=== PATIENT | male | born 1930 | race Caucasian/White ===

== ENCOUNTER → 2017-12-17 | Outpatient (CLI) | payer MEDICARE, OTHER | END | disposition home or self-care (01) | LOC: PCVCIMAG 08:20 | DX: I73.9 Peripheral vascular disease, unspecified (principal); I25.10 Atherosclerotic heart disease of native coronary artery without angina pectoris; I10 Essential (primary) hypertension; E78.00 Pure hypercholesterolemia, unspecified; Z87.891 Personal history of nicotine dependence; Z79.82 Long term (current) use of aspirin; Z79.899 Other long term (current) drug therapy | CPT/HCPCS: 93925; G0463 ==

== ENCOUNTER → 2017-12-18 | Outpatient (CLI) | payer MEDICARE ==
[~2017-12-18] MED LIST: ASPIRIN 325 MG TABLET; CLOPIDOGREL BISULFATE 75 MG TABLET; DIAZEPAM 10 MG TABLET.; EPINEPHrine 1 MG/ML VIAL; EPTIFIBATIDE BOLUS 2,000 MCG/ML 10ML VIAL. IV; HEPARIN SODIUM 5,000 UNIT/ML VIAL for PCVC.; IODIXANOL 270 MG/ML 100 ML VIAL.; IV NORMAL SALINE 500ML BAG 500 ML; LIDOCAINE 1% Multi-Dose 50 ML VIAL.; MIDAZOLAM HCL/PF 2 MG/2 ML VIAL.; ceFAZolin SODIUM 1 GM VIAL; fentaNYL PF VIAL 100 MCG/2 ML VIAL; hydrALAZINE 20 MG/ML VIAL.
== END | disposition home or self-care (01) ==
LOC: PCVCIMAG 07:42
DX: I70.223 Atherosclerosis of native arteries of extremities with rest pain, bilateral legs (principal); I70.92 Chronic total occlusion of artery of the extremities; I70.0 Atherosclerosis of aorta; I70.1 Atherosclerosis of renal artery; I10 Essential (primary) hypertension; I25.10 Atherosclerotic heart disease of native coronary artery without angina pectoris
CPT/HCPCS: 36252; 37186; 37225; 37228; 37229; 37232; 75716; 76937; 99152; 99153; C1725; C1751; C1757; C1760; C1769; C1885; C1887; C1894; C2623; J0171; J0360; J0690; J1327; J1644; J2250; J3010; J7040

== ENCOUNTER → 2018-04-04 | Outpatient (CLI) | payer MEDICARE ==
--- NOTE | 2018-04-04 20:59 | PCVCIMAG ---
EXAM: BILATERAL CAROTID DUPLEX INDICATION: Carotid Occlusive Disease. FINDINGS: Doppler Measurements (centimeters per second): RIGHT: Peak CCA-121, Peak ECA-137, Diastolic ICA-14, Peak ICA-99, ICA/CCA Ratio-0.8. LEFT: Peak CCA-108, Peak ECA-160, Diastolic ICA-44, Peak ICA-228, ICA/CCA Ratio-2.1. RIGHT CAROTID: The carotid bulb has moderate plaque. The proximal internal carotid artery shows <40% stenosis. The common carotid artery shows no significant stenosis. The external carotid artery shows 40% stenosis. LEFT CAROTID: The carotid bulb has moderately severe plaque. The proximal internal carotid artery shows 60-70% stenosis. The common carotid artery shows no significant stenosis. The external carotid artery shows 50% stenosis. Antegrade flow in both vertebral arteries. IMPRESSION: <40% stenosis of the right internal carotid artery with moderate plaque. 60-70% stenosis of the left internal carotid artery with moderately severe plaque. LOC:[place] [id number]
--- NOTE | 2018-04-04 21:53 | PCVCIMAG ---
EXAM: LEFT LOWER EXTREMITY ARTERIAL DUPLEX INDICATION: Peripheral Arterial Disease. Leg pain. FINDINGS: Left Leg: Common femoral and profunda femoral arteries. Superficial femoral and popliteal artery are patent throughout. The anterior tibial and posterior tibial arteries are patent. 80% stenosis origin peroneal artery. IMPRESSION: Previous site of intervention left popliteal artery maintaining good patency. Left anterior and posterior tibial arteries are patent. 80% restenosis proximal left peroneal artery. LOC:[id number]
== END | disposition home or self-care (01) ==
LOC: PCVCIMAG 15:33
PROVIDERS: ATTEND Nuclear Medicine Nuclear Cardiology
DX: I65.23 Occlusion and stenosis of bilateral carotid arteries (principal); I73.9 Peripheral vascular disease, unspecified
CPT/HCPCS: 93880; 93926; G0463

== ENCOUNTER → 2018-04-07 | Outpatient (CLI) | payer MEDICARE | END | disposition home or self-care (01) | LOC: PCVCCLINIC 16:19 | PROVIDERS: ATTEND Nuclear Medicine Nuclear Cardiology | DX: I73.9 Peripheral vascular disease, unspecified (principal); I77.9 Disorder of arteries and arterioles, unspecified; I25.10 Atherosclerotic heart disease of native coronary artery without angina pectoris; I10 Essential (primary) hypertension; E78.00 Pure hypercholesterolemia, unspecified; Z87.891 Personal history of nicotine dependence; Z79.82 Long term (current) use of aspirin; Z88.8 Allergy status to other drugs, medicaments and biological substances | CPT/HCPCS: G0463 ==

== ENCOUNTER → 2018-10-13 | Outpatient (CLI) | payer BC, MEDICARE ==
--- NOTE | 2018-10-13 15:56 | PCVCIMAG ---
EXAM: BILATERAL CAROTID DUPLEX INDICATION: Carotid Occlusive Disease. FINDINGS: Doppler Measurements (centimeters per second): RIGHT: Peak CCA-116, Peak ECA-130, Diastolic ICA-27, Peak ICA-130, ICA/CCA Ratio-1.1. LEFT: Peak CCA-101, Peak ECA-114, Diastolic ICA-51 Peak ICA-239ICA/CCA Ratio-2.4 RIGHT CAROTID: The carotid bulb has moderate plaque. The proximal internal carotid artery shows 40-50% stenosis. The common carotid artery shows no significant stenosis. The external carotid artery shows 40% stenosis. LEFT CAROTID: The carotid bulb has moderately severe plaque. The proximal internal carotid artery shows 60-70% stenosis. The common carotid artery shows no significant stenosis. The external carotid artery shows no significant stenosis. Antegrade flow in both vertebral arteries. IMPRESSION: 40-50% stenosis of the right internal carotid artery with moderate plaque. 60-70% stenosis of the left internal carotid artery with moderately severe plaque. No change since March 2018. LOC:[id number]
--- NOTE | 2018-10-13 21:42 | PCVCIMAG ---
EXAM: BILATERAL LOWER EXTREMITY ARTERIAL DUPLEX INDICATION: Peripheral Arterial Disease. Leg pain. FINDINGS: Right Leg: Common femoral and profunda femoral arteries are patent. Superficial femoral artery and popliteal artery are patent. The anterior tibial and peroneal arteries are patent. Occlusion of the distal posterior tibial artery. Left Leg: Common femoral and profunda femoral arteries are patent. Superficial femoral artery is patent. 60-70% restenosis mid nightmute popliteal artery site of prior intervention. The anterior tibial artery is patent. 70-80% restenosis proximal peroneal artery. Posterior tibial artery is patent. IMPRESSION: Occlusion distal right posterior tibial artery. Otherwise no flow limiting stenosis in the right lower extremity. 60-70% restenosis mid nightmute left popliteal artery at site of prior intervention has developed since March 2018 study. 70-80% restenosis proximal left peroneal artery is unchanged. LOC:OFFICE
== END | disposition home or self-care (01) ==
LOC: PCVCIMAG 13:10
PROVIDERS: ATTEND Nuclear Medicine Nuclear Cardiology
DX: I65.23 Occlusion and stenosis of bilateral carotid arteries (principal); I73.9 Peripheral vascular disease, unspecified; I77.9 Disorder of arteries and arterioles, unspecified; E78.00 Pure hypercholesterolemia, unspecified; M79.671 Pain in right foot; M79.672 Pain in left foot
CPT/HCPCS: 93880; 93925

== ENCOUNTER → 2018-10-14 | Outpatient (CLI) | payer BC | END | disposition home or self-care (01) | LOC: PCVCCLINIC 09:39 | PROVIDERS: ATTEND Nuclear Medicine Nuclear Cardiology | DX: I73.9 Peripheral vascular disease, unspecified (principal); I77.9 Disorder of arteries and arterioles, unspecified; I25.10 Atherosclerotic heart disease of native coronary artery without angina pectoris; I10 Essential (primary) hypertension; E78.00 Pure hypercholesterolemia, unspecified; E03.9 Hypothyroidism, unspecified; K21.9 Gastro-esophageal reflux disease without esophagitis; M19.90 Unspecified osteoarthritis, unspecified site; E78.2 Mixed hyperlipidemia; Z95.1 Presence of aortocoronary bypass graft; Z87.891 Personal history of nicotine dependence; Z79.82 Long term (current) use of aspirin | CPT/HCPCS: 93005; G0463 ==

== ENCOUNTER → 2018-10-22 | Outpatient (CLI) | payer BC ==
[~2018-10-22] MED LIST changes: -ASPIRIN 325 MG TABLET; -CLOPIDOGREL BISULFATE 75 MG TABLET; -DIAZEPAM 10 MG TABLET.; +DIAZEPAM 10 MG TABLET. ONE; -EPINEPHrine 1 MG/ML VIAL; -EPTIFIBATIDE BOLUS 2,000 MCG/ML 10ML VIAL. IV; +EPTIFIBATIDE BOLUS 2,000 MCG/ML 10ML VIAL. IV ONE; -HEPARIN SODIUM 5,000 UNIT/ML VIAL for PCVC.; +HEPARIN for SUB-Q USE 5,000 UNIT/ML VIAL. SQ ONE; +HYDROcodone/APAP 5/325MG 1 TAB TABLET ONE; -IODIXANOL 270 MG/ML 100 ML VIAL.; +IODIXANOL 270 MG/ML 100 ML VIAL. ONE; +IV NORMAL SALINE 1000ML BAG 1,000 ML ONE; -IV NORMAL SALINE 500ML BAG 500 ML; -LIDOCAINE 1% Multi-Dose 50 ML VIAL.; +LIDOCAINE 1%/EPI 1:100,000 20 ML VIAL. ONE; -MIDAZOLAM HCL/PF 2 MG/2 ML VIAL.; +MIDAZOLAM HCL/PF 2 MG/2 ML VIAL. ONE; -ceFAZolin SODIUM 1 GM VIAL; -fentaNYL PF VIAL 100 MCG/2 ML VIAL; +fentaNYL PF VIAL 100 MCG/2 ML VIAL ONE; -hydrALAZINE 20 MG/ML VIAL.; +hydrALAZINE 20 MG/ML VIAL. ONE
--- NOTE | 2018-10-22 20:20 | PCVCINTER ---
EXAM: 1. AORTOGRAM AND BILATERAL LOWER EXTREMITY RUNOFF ANGIOGRAM 2. BILATERAL RENAL ANGIOGRAPHY 3. RIGHT POSTERIOR TIBIAL ARTERY ATHERECTOMY AND ANGIOPLASTY. 4. SECONDARY THROMBECTOMY RIGHT POPLITEAL ARTERY. INDICATION: Peripheral arterial disease. Rest pain right foot. Hypertension. Renal atherosclerosis. No prior catheter based angiographic study is available. A full diagnostic angiogram study is performed today and the decision to intervene is based on this diagnostic study. PROCEDURE: Procedure and risks of angiography and intervention including limb loss, stroke, and were discussed with the patient's family and consent obtained. The patient's left groin was prepped in the normal sterile fashion. IV conscious sedation was used throughout procedure with appropriate monitoring from 10:30 AM through 12:00 PM. Ultrasound was used to interrogate the left groin and showed the left common femoral artery to be patent. A permanent spot film was obtained. Under ultrasound guidance access into the left common femoral artery was obtained and a 5 Israeli sheath was placed. Through this a 5 Israeli flush catheter was placed into the abdominal aorta at the level of the renal arteries and AP aortogram was performed. Catheter was positioned at the aortic bifurcation and both oblique views of the pelvis were obtained. Catheter was positioned into the left external iliac artery and left leg runoff angiography was performed. Catheter was exchanged for a visceral catheter was placed into the right renal arteries and right renal angiograms obtained. Catheter was placed into the the left renal arteries and left renal angiograms were obtained. Catheter was advanced to the level of the right external iliac artery and right leg runoff angiography was obtained. Patient was given 4500 units of heparin. A 6 Israeli crossover sheath was placed via the left groin to the level of the right common femoral artery. Atherectomy of the right posterior tibial artery was performed with 0.9 mm [employer] laser atherectomy catheter in the standard fashion. Following atherectomy small areas of thrombus were observed and because of this secondary thrombectomy throughout the right posterior tibial artery was carried out with mechanical suction thrombectomy catheter in the standard fashion. Minimal debris was removed. Angioplasty of the right distal posterior tibial artery was carried out with a Cordis sleek 2.0 x 220 [employer] catheter. Angioplasty of the right mid posterior tibial artery was carried out with a 2.5 x 150 Cordis sleek [employer] catheter. Angioplasty of the right proximal posterior tibial artery was carried out with a 3.0 x 80 Cordis sleek [employer] catheter. Follow-up angiogram was performed. Catheters and wires removed. Sheath was removed and hemostasis obtained using the FISH device. No immediate complications. FINDINGS: Aortogram: There is one right and one left renal artery. Moderate plaque infrarenal abdominal aorta without significant stenosis. Pelvis: The right and left common and external iliac arteries are patent. Both internal iliac arteries are patent. The right and left common femoral and profunda femoral arteries are patent. Right renal artery: Moderate plaque proximal vessel results in 40% stenosis. Left renal artery: Mild plaque proximal vessel does not cause significant stenosis. Right leg: Superficial femoral artery and popliteal artery shows adequate patency throughout. Occlusion of the distal anterior tibial artery and dorsalis pedis. 80% stenosis origin peroneal artery. Distal peroneal artery shows occlusion. 70% stenosis origin posterior tibial artery. Segmental occlusion mid/distal posterior tibial artery. Areas of high-grade stenosis distal most posterior tibial artery and proximal lateral plantar artery. Left leg: Superficial femoral artery shows good patency throughout. 40% restenosis previous site of intervention mid popliteal artery not felt be flow-limiting. The anterior tibial artery show scattered plaque throughout without significant stenosis to runoff into a small dorsalis pedis. 70% restenosis origin posterior tibial artery site of prior intervention. 60% restenosis proximal peroneal artery at prior site of intervention. Areas of high-grade stenosis distal posterior tibial artery with occlusion of the plantar arteries. The distal peroneal artery becomes diminutive in size. Right posterior tibial artery: Following procedure as above satisfactory patency has been restored throughout. IMPRESSION: Areas of occlusion high-grade stenoses in the right posterior tibial artery as detailed above were treated as above with adequate patency restored. Bilateral infrapopliteal arterial occlusive disease as reviewed above. LOC:[id number]
== END | disposition home or self-care (01) ==
LOC: PCVCINTER 12:37
PROVIDERS: ATTEND Nuclear Medicine Nuclear Cardiology
DX: I70.221 Atherosclerosis of native arteries of extremities with rest pain, right leg (principal); I70.1 Atherosclerosis of renal artery; I70.0 Atherosclerosis of aorta; I70.292 Other atherosclerosis of native arteries of extremities, left leg; I11.0 Hypertensive heart disease with heart failure; I50.9 Heart failure, unspecified; N40.0 Benign prostatic hyperplasia without lower urinary tract symptoms; I25.10 Atherosclerotic heart disease of native coronary artery without angina pectoris; K21.9 Gastro-esophageal reflux disease without esophagitis; E03.9 Hypothyroidism, unspecified; Z95.1 Presence of aortocoronary bypass graft; M19.90 Unspecified osteoarthritis, unspecified site; Z98.890 Other specified postprocedural states; Z82.49 Family history of ischemic heart disease and other diseases of the circulatory system; Z82.3 Family history of stroke; Z87.891 Personal history of nicotine dependence; Z88.1 Allergy status to other antibiotic agents; Z88.8 Allergy status to other drugs, medicaments and biological substances; Z79.899 Other long term (current) drug therapy; Z79.82 Long term (current) use of aspirin; D64.9 Anemia, unspecified; E78.00 Pure hypercholesterolemia, unspecified
CPT/HCPCS: 36252; 37186; 37229; 75716; 76937; 99152; 99153; C1725; C1751; C1757; C1760; C1769; C1885; C1894; J0360; J0690; J1327; J1644; J2250; J3010; J3490; J7030; Q9967